=== PATIENT | female | born 1960 | race Caucasian/White ===

== ENCOUNTER 2022-12-21 19:53 | Emergency (ER) | payer BC ==
[~2022-12-21] VITALS: Ht 165.1 cm; Wt 60.3 kg
[2022-12-21 20:05] VITALS: BP_SYST 115; PULSE 94; RESP 16; TEMP 97.9; O2SAT 99
[2022-12-21] MEDS ORDERED: LORazepam 1 MG TABLET PO ONE (21:30)
[2022-12-21 22:06] VITALS: BP_SYST 115; PULSE 94; RESP 16; TEMP 97.9; O2SAT 99
== END 2022-12-21 21:54 | disposition home or self-care (01) ==
LOC: SED 19:53
DX: F41.9 Anxiety disorder, unspecified (principal); R20.2 Paresthesia of skin; I10 Essential (primary) hypertension; E78.5 Hyperlipidemia, unspecified; Z79.899 Other long term (current) drug therapy
CPT/HCPCS: 93005; 99283